=== PATIENT | female | born 1975 | race Caucasian/White ===

== ENCOUNTER → 2017-05-02 14:38 | Outpatient (CLI) | payer MEDICAID, SELFPAY ==
[2017-05-02 17:43] LABS: Group B Strep DNA By PCR Negative (Negative); Internal Control PASS; Probe Check PASS; Specimen Processing Control PASS
== END ==
PROVIDERS: Visit Provider Obstetrics & Gynecology
DX: Z36.85 Encounter for antenatal screening for Streptococcus B (principal)
CPT/HCPCS: 87081; 87653

== ENCOUNTER 2017-05-21 05:41 | Inpatient (IN) | payer MEDICAID, SELFPAY ==
[2017-05-17 09:26] VITALS: BMI 34.2
[2017-05-21] VITALS (21 sets, daily range): BP systolic 104–132; BP diastolic 53–83; PULSE 71–88; RESP 10–20; TEMP 36.6–37.6; O2SAT 95–98
[2017-05-21] MEDS: Lactated Ringers 1,000 ML 999 ML IV (06:05)
[2017-05-21 06:34] LABS: International Normalized Ratio 0.9; Prothrombin Time (Protime)PT. 12.4 SECONDS (11.7-14.9)
[2017-05-21 06:35] LABS: Partial Thromboplast Time 27.6 Seconds (24.1-36.2)
[2017-05-21 06:37] LABS: Absolute Lymphocyte Count 1.49 X10^3/ul (0.83-4.51); Absolute Neutrophil Count 7.1 X10^3/uL (2.0-7.7); Basophil# 0.02 X10^3/uL; Basophil% 0.2 % (0-1); Eosinophil# 0.14 X10^3/uL; Eosinophils% 1.5 % (0-5); Hematocrit 33.2 % (37-47); Hemoglobin 11.5 g/dl (12.0-15.0); Lymphocyte # 1.49 X10^3/ul (4.0); Lymphocyte % 15.8 % (19-41); Mean Corp Hgb Conc 34.6 g/gl (32-36); Mean Corpuscular Hgb 33.1 pg (27.0-32.0); Mean Corpuscular Volume 95.7 fL (81-99); Mean Platelet Vol. 10.2 fl (6.2-12.0); Monocyte# 0.64 X10^3/uL; Monocyte% 6.8 % (0-10); Platelet Count 227 K/mm3 (150-450); RBC Distribution Width CV 13.4 % (11.6-14.6); RBC Distribution Width SD 44.3 fl (35.1-43.9); Red Blood Count 3.47 M/mm3 (4.2-5.4); White Blood Count 9.5 K/mm3 (4.4-11.0)
[2017-05-21 06:40] LABS: POSITIVE COUNT NO; POSITIVE DIFFERENTIAL NO; POSITIVE MORPHOLOGY NO
[2017-05-21] MEDS: Lactated Ringers 1,000 ML 150 ML IV (07:14)
[2017-05-21] MEDS: Sodium Citrate/Citric Acid 30 ML UDC PO (07:15)
[2017-05-21] MEDS: Cefazolin 2 GM in 0.9% Normal Saline 100 ML IV (07:15)
--- NOTE | 2017-05-21 07:39 | PCM.OP.BLANK ---
Operative Report Date of Procedure: 05/21/17 Surgeon: Anam Parish MD, FACOG [employer] Web Developer: MERE Loredo Anesthesia: Lon Márquez CRNA Anesthesia: Spinal with Duramorph Pre-op Diagnosis: - -Prior Section, Desires Permanent Sterilization Post-Op Diagnosis: - -Prior Section, Desires Permanent Sterilization Procedure: Repeat Low Transverse Cervical Caesarean Section And Bilateral Tubal Occlusion with Filshie Clips Findings: Viable female with Apgars of 9/9 in occiput anterior presentation with clear amniotic fluid and normal three-vessel placenta. Umbilical cord was around the neck ?1 loose. Indication: This is a 41-year-old multiparous patient who presents for her third at 39+ weeks gestation. care has otherwise been uneventful except she desires permanent sterilization. The patient has been counseled regarding the risk and indications of this procedure including the possibility of bleeding infection and injury to surrounding structures such as bowel bladder. She also understands the permanent nature of a tubal, the failure rate of 1-2%, and the availability of other nonpermanent control options. All questions were answered. Procedure: Patient was taken to the operating room where after spinal anesthesia was placed, the patient was prepped and draped in usual sterile fashion and a Nicole catheter was placed. The abdomen was entered through the patient's prior Pfannenstiel incision and peritoneum was entered bluntly. After developing a bladder flap on the lower uterine segment a low transverse incision was made on the uterus and head was easily delivered onto the operative field the nose mouth and oropharynx were bulb suctioned. Subsequently a viable female was born with Apgars of 9/9. The infant was noted to cry move all extremities vigorously on the operative field. The umbilical cord was doubly clamped and ligated and infant handed to the nursery personnel who were present for the delivery. Placenta was delivered and noted to be 3 vessels and normal. Uterus was exteriorized remaining placental tissue was removed. The uterus was then closed in 2 layers first with running locked Number 1 Vicryl suture followed by a second imbricating layer with Number 1 Vicryl suture. Number 1 Vicryl suture was then used in a horizontal mattress interrupted fashion to effect final hemostasis of the uterine incision line. Normal fallopian tubes and ovaries were visualized and Filshie clips were placed approximately 1-2 cm from the uterine fundus on each fallopian tube. The uterus was returned to the pelvis. Hemostasis was noted and rectus abdominis muscles were reapproximated in the midline with interrupted Number 1 Vicryl suture in a horizontal mattress fashion. Fascia was closed with running 0 stratafix PDS suture. Subcutaneous tissue was copiously irrigated with saline solution and closed with running 3-0 Vicryl suture and skin was closed with 4-0 monocryl suture in a running subcuticular fashion. Steri strips, telfa, and tape were placed across the incision. The patient tolerated the procedure well and was taken to the recovery room in satisfactory condition. Sponge, needle, and instrument counts were all reportedly correct. EBL was less than 500 cc. Ancef 2 gms IV was given prior to the procedure. Spicemen to Pathology: None Complications: None
[2017-05-21] MEDS: Oxytocin 30 units/NS 500 ml 30 UNITS/500 ML IV.SOLN 167 UNITS IV (07:54)
--- NOTE | 2017-05-21 08:38 | DCINST_ITS ---
Discharge Diet: No Restrictions Discharge Activity: May not drive while taking narcotic pain medications., May Shower, May Take a Tub Bath May resume sexual activity in: 4-6 weeks Lifting Restrictions: 20 pounds Additional Activity Instructions:: Nothing in the vagina for 4-6 weeks. You may return to work/school in 6 weeks. Call your doctor if your incision/area has: Continuous Slow Oozing, Sudden Increased Bleeding, Increased Pain/ Swelling, Increased Redness, Foul Smelling Discharge Call your doctor if you observe: Fever of 101 or Higher, Inability to urinate, Inability to have a bowel movement, Using more than one pad per hour Additional Instructions: If you experience any of the following, contact your healthcare provider. * Bleeding that soaks a pad every hour for 2 hours * Unrelieved incision or abdominal pain * Swelling, redness, discharge or bleeding from your incision or episiotomy site * Your incision begins to separate * Problems urinating (including inability to urinate or burning while urinating) . * Visual changes * Severe headache * Flu-like symptoms * Pain or redness in one of both of your breasts * Pain, warmth, tenderness or swelling in your legs, especially the calf area * Frequent nausea and vomiting * Symptoms of depression or anxiety If you experience any of the following, call 911 or go to the nearest Emergency Room. * Chest pain * Problems breathing * Seizure activity * Partial or complete paralysis of a body part, slurred speech, weakness or drooping of the face, or a sudden inability to walk or hold your balance Allergies/Adverse Reactions: Allergies No Known Allergies Allergy (Verified 05/21/17 06:26) Medications to take at Discharge Vits [Prenatabs FA ] 1 tab PO DAILY 05/17/17 Docusate Sodium [Colace] 100 mg PO BID PRN PRN #60 cap 05/21/17 RX: Oxycodone [Oxyir] 5 mg PO Q6H PRN PRN 7 Days #20 tab 05/21/17 The following prescriptions were given: RX: Oxycodone [Oxyir] 5 mg PO Q6H PRN PRN 7 Days #20 tab PRN Reason: Severe Pain (6-12/19) Docusate Sodium [Colace] 100 mg PO BID PRN PRN #60 cap PRN Reason: Constipation Follow-Up: Call to make an appointment with your doctor for an incision check in 1-2 weeks. You will also need a 6 week post- follow up appointment. Please Follow Up With: Anam Parish MD - [phone] When: Call to make an appointment for an incision check in 2 weeks.
[2017-05-21] MEDS: Lactated Ringers 1,000 ML 100 ML IV ×2 (11:08→22:03)
[2017-05-21] MEDS: 0.9% Saline Lock 10 ML Syringe IV ×2 (13:16→18:06)
[2017-05-21] MEDS: Ketorolac 30 MG/ML Syringe IV ×2 (13:16→18:06)
[2017-05-21] MEDS: Cefazolin 1 GM/50 ML BAG IV ×2 (15:37→23:04)
[2017-05-22] VITALS (7 sets, daily range): BP systolic 117–130; BP diastolic 67–73; PULSE 71–78; RESP 16–18; TEMP 36.4–37.6; O2SAT 95–97
[2017-05-22] MEDS: Ketorolac 30 MG/ML Syringe IV ×4 (00:28→18:30)
[2017-05-22 06:02] LABS: Hematocrit 31.8 % (37-47); Hemoglobin 10.6 g/dl (12.0-15.0); Mean Corp Hgb Conc 33.3 g/gl (32-36); Mean Corpuscular Hgb 32.6 pg (27.0-32.0); Mean Corpuscular Volume 97.8 fL (81-99); Mean Platelet Vol. 10.3 fl (6.2-12.0); Platelet Count 202 K/mm3 (150-450); RBC Distribution Width CV 13.4 % (11.6-14.6); RBC Distribution Width SD 45.4 fl (35.1-43.9); Red Blood Count 3.25 M/mm3 (4.2-5.4); White Blood Count 10.3 K/mm3 (4.4-11.0)
[2017-05-22 06:06] LABS: Scan Indicated on CBC? Y/N NO
[2017-05-22] MEDS: 0.9% Saline Lock 10 ML Syringe IV ×3 (08:28→18:30)
[2017-05-22] MEDS: Senna/Docusate Sodium 1 Tablet PO (08:42)
--- NOTE | 2017-05-22 08:47 | PCM.PN.OB ---
Subjective: Patient without complaints. Tolerating diet well. Denies flatus or BM. Pain well controlled. Breast feeding going well. - Physical Exam Vital Signs AF, VSS Temp Pulse Resp BP Pulse Ox 98.6 F 77 16 122/67 H 96 05/22/17 04:45 05/22/17 04:45 05/22/17 06:45 05/22/17 04:45 05/22/17 06:45 Oxygen Delivery Method Room Air Weight: 199 lb 12.8 oz Body Mass Index (BMI) 34.2 Intake and Output for Last 24 Hours 05/20/17 05/21/17 05/22/17 23:59 23:59 23:59 Intake Total 3416 / 3416 Output Total 1030 / 1030 2200 / 2200 Balance 2386 / 2386 -2200 / -2200 Laboratory Tests Past 24 Hrs 05/22/17 05:30 WBC 10.3 RBC 3.25 L Hgb 10.6 L Hct 31.8 L MCV 97.8 MCH 32.6 H MCHC 33.3 RDW 13.4 RDW Differential 45.4 H Plt Count 202 MPV 10.3 Wound is clean, dry, intact. Good urine output. Hemoglobin okay. Assessment/Plan Doing well. Continuing present care.
--- NOTE | 2017-05-22 11:11 | NURSING ---
tyler cath dc'ed
[2017-05-22] MEDS: oxyCODONE 5 MG Tablet PO (15:49)
[2017-05-23] MEDS: 0.9% Saline Lock 10 ML Syringe IV (00:11)
[2017-05-23] MEDS: Ketorolac 30 MG/ML Syringe IV (00:11)
[2017-05-23 02:30] VITALS: BP 130/83; PULSE 68; RESP 16; TEMP 37.1; O2SAT 97
[2017-05-23] MEDS: oxyCODONE 5 MG Tablet PO ×3 (03:37→12:42)
[2017-05-23] MEDS: Ibuprofen 600 MG Tablet PO ×2 (07:22→14:53)
--- NOTE | 2017-05-23 09:14 | PCM.PN.OB ---
Subjective: Patient without complaints. Tolerating diet well. Positive flatus. Ready to go home. Minimal vaginal bleeding. - Physical Exam Vital Signs AF, VSS Temp Pulse Resp BP Pulse Ox 98.7 F 68 16 130/83 H 97 05/23/17 02:30 05/23/17 02:30 05/23/17 02:30 05/23/17 02:30 05/23/17 02:30 Oxygen Delivery Method Room Air Weight: 199 lb 12.8 oz Body Mass Index (BMI) 34.2 Intake and Output for Last 24 Hours 05/21/17 05/22/17 05/23/17 23:59 23:59 23:59 Intake Total 3416 / 3416 Output Total 1030 / 1030 4350 / 4350 Balance 2386 / 2386 -4350 / -4350 Wound is clean, dry, intact. Assessment/Plan Doing well. Will release to home with routine instructions. Follow-up in 2 and 6 weeks.
[2017-05-23 10:00] VITALS: BP 133/68; PULSE 72; RESP 16; TEMP 37; O2SAT 96
[2017-05-23] MEDS: Senna/Docusate Sodium 1 Tablet PO (12:42)
[2017-05-23 15:00] VITALS: BP 123/80; PULSE 73; RESP 18; TEMP 37.3; O2SAT 97
== END 2017-05-23 16:20 | disposition home or self-care (01) | DRG 371 ==
PROVIDERS: Admitting Provider Obstetrics & Gynecology; Visit Provider Obstetrics & Gynecology
DX: O34.211 Maternal care for low transverse scar from previous cesarean delivery (principal); O69.81X0 Labor and delivery complicated by cord around neck, without compression, not applicable or unspecified; Z30.2 Encounter for sterilization; Z37.0 Single live birth; Z3A.39 39 weeks gestation of pregnancy
CPT/HCPCS: 85025; 85027; 85610; 85730; 86850; 86900; 94762; 99218; J7120; A4216; G0378; J2405